=== PATIENT | female | born 1970 | race African-American/Black ===

== ENCOUNTER 2017-06-19 23:11 | Emergency (ER) | payer SELFPAY ==
[2017-06-19] MEDS ORDERED: Metoprolol Tartrate 5 MG/5 ML VIAL ONE (23:54)
--- NOTE | 2017-06-20 00:03 | RAD ---
PORTABLE UPRIGHT FRONTAL CHEST RADIOGRAPH: Date: 06-19-17 Comparison: None. History: Chest pain, throat pain. FINDINGS: Lungs are clear. Heart and mediastinal contours are grossly unremarkable. IMPRESSION: No acute findings. POS: [facility]
[2017-06-20 00:12] LABS: #Basophils 0.1 thou/uL (0.0-0.2); #Eosinphils 0.1 thou/uL (0.0-0.7); #Lymphocytes 2.9 thou/uL (1.20-3.40); #Monocytes 1.4 thou/uL (0.11-0.59); #Neutrophils 9.9 thou/uL (1.40-6.50); %Basophils 0.5 % (0.0-1.0); %Eosinophils 0.9 % (0.0-10.0); %Lymphocytes 19.9 % (21.0-51.0); %Monocytes 9.8 % (0.0-10.0); %Neutrophils 68.9 % (42.0-75.0); Hemoglobin 14.7 g/dL (12.0-16.0); Mean Corpuscular Hemoglobin 32.2 pg (27.0-31.0); Mean Corpuscular Volume 94.9 fl (81.0-99.0); Mean Platelet Volume 7.6 fL (7.4-10.4); Platelet Count 254 thou/uL (130-400); RBC Distribution Width 11.8 % (11.5-14.5); Red Blood Cell (RBC) Count 4.55 mill/uL (4.20-5.40); White Blood Cell (WBC) Count 14.4 thou/uL (4.8-10.8)
[2017-06-20 00:33] LABS: ALT (SGPT) 17 U/L (8-55); AST (SGOT) 15 U/L (5-34); Albumin 4.4 g/dL (3.5-5.0); Alkaline Phosphatase 80 U/L (40-150); Anion Gap 13 mmol/L (10-20); BUN (Urea Nitrogen) 14 mg/dL (7.0-18.7); Bilirubin, Total 0.5 mg/dL (0.2-1.2); Calc. Creatinine Clearance 0 mL/min (70-130); Calcium 9.9 mg/dL (7.8-10.44); Carbon Dioxide 24 mmol/L (22-29); Chloride 105 mmol/L (98-107); Estimated GFR-MDRD Greater than 90; Glucose 108 mg/dL (70-105); Potassium 3.6 mmol/L (3.5-5.1); Protein, Total 8.4 g/dL (6.0-8.3); Sodium 138 mmol/L (136-145)
[2017-06-20 00:37] LABS: CKMB 0.2 ng/mL (0-6.6); Troponin I Less than 0.010 ng/mL (< 0.028)
[2017-06-20] MEDS ORDERED: Acetaminophen 500 MG TAB ONE (00:38)
[2017-06-20 01:13] LABS: Bilirubin Negative (Negative); Blood, Urine Trace (Negative); Clarity CLEAR (Clear); Glucose, Urine (Dipstick) Negative (Negative); Leukocyte Negative (Negative); Nitrite Negative (Negative); Protein, Urine (Dipstick) Negative (Neg-Trace); Specific Gravity, Urine 1.016 (1.002-1.036); pH, Urine 6.5 (5.0-9.0)
[2017-06-20 01:16] LABS: Bacteria/HPF None Seen HPF (None Seen); Hyaline Casts/LPF 0-3 HYALINE CAST LPF (0-3 Hyaline); Squamous Epithelial None Seen HPF (0-3); WBC/HPF 0-3 HPF (0-3)
[2017-06-20] MEDS ORDERED: Azithromycin 500 MG VIAL ONE (03:12)
--- NOTE | 2017-06-20 08:11 | CT ---
PRELIMINARY REPORT/[facility]/EMERGENCY AFTER HOURS PROCEDURE: Addendum created by Diogenes Rhodes MD on 06/20/2017 3:00 AM Central Time ([place] & [place]) There is thickening of the adrenal glands bilaterally with maintenance of the adreniform shape but no discrete nodule or mass is. This may represent adrenal hyperplasia or adenoma formation, but is inde terminate. Initial Report created on 06/20/2017 2:55 AM Central Time ([place] & [place]) EXAM: CT Angiography Chest With Intravenous Contrast EXAM DATE/TIME: Exam ordered 06/20/2017 1:53 AM CLINICAL HISTORY: 47 years old, female; Pain; Chest pain; Type not specified; Patient HX: 46 yo f presents to ed for mu ltiple complaints. Pt reports sore throat and substernal chest pain for past x2 days. Reports chills and pain behind r ear that started today. States she did not take temperature at home. Pt reports veronique ce has been sick at home. Denies cough. Reports congestion. Reports SOB for past couple of months. De nies diarrhea. Pt is a smoker. Denies ETOH or drugs TECHNIQUE: Axial computed tomographic angiography images of the chest with intravenous contrast using pulmonary embolism protocol. All CT scans at this facility use one or more dose reduction techniques, viz.: aut omated exposure control; ma/kV adjustment per patient size (including targeted exams where dose is ma tched to indication; i.e. head); or iterative reconstruction technique. CONTRAST: 100 mL of ISO 370 administered intravenously. COMPARISON: No relevant prior studies available. FINDINGS: Pulmonary arteries: Unremarkable. No pulmonary embolism. Aorta: No acute findings. No thoracic aortic aneurysm. Lungs: There are multiple indeterminate pulmonary nodules measuring up to 5 mm in size, mostly near t he lung apices. One of these, in the periphery of the left lung apex, demonstrates central bronchiola r dilatation versus cavitation. Lungs otherwise clear allowing for expiratory phase imaging. Pleural space: Unremarkable. No significant effusion. No pneumothorax. Heart: Small pericardial effusion. No evidence of RV dysfunction. Mediastinum: Esophagus is unremarkable. Bones/joints: No acute fracture. No dislocation. Soft tissues: Unremarkable. Lymph nodes: Unremarkable. No enlarged lymph nodes. IMPRESSION: 1. Small pericardial effusion. 2. There are multiple indeterminate pulmonary nodules measuring up to 5 mm in size, mostly near the l thomas apices. One of these, in the periphery of the left lung apex, demonstrates central bronchiolar di latation versus cavitation. Findings may represent active atypical pulmonary infection, sequelae of p revious infection, or metastases. Thank you for allowing us to participate in the care of your patient. Dictated and Authenticated by: Diogenes Rhodes MD 06/20/2017 2:55 AM Central Time ([place] & [place]) FINAL REPORT EMERGENCY AFTER HOURS CT ANGIOGRAM THORAX WITH IV CONTRAST AND 3D RECONSTRUCTIONS: DATE: 06/20/17. HISTORY: Substernal chest pain for the past 2 days. Sore throat. Chest congestion and shortness of breath fo r the past couple of months. IMPRESSION: 1. There are several small subcentimeter pulmonary nodules seen within the upper lobes bilaterally. The largest pulmonary nodule in the right lung apex measures 6 mm. A few of the pulmonary nodules i n the left upper lobe demonstrate what appear to be central cavitations. The findings could be relat ed to atypical infectious process. However, followup evaluation is recommended as metastatic disease could not be entirely excluded. 2. Mild cardiomegaly with a small pericardial effusion. 3. Minimal vascular calcifications. 4. Suggestion of a mixed fat and soft tissue density incompletely imaged mass within the right breas t. This could potentially represent a fibroadenolipoma, but this would be better evaluated with mamm ographic evaluation if this has not been performed. 5. Subcentimeter too small to characterize hypodense lesions in superior pole right kidney. 6. Punctate focus of enhancement in the posterior segment of right hepatic lobe which is probably re lated to transient hepatic attenuation difference. 7. Findings are in agreement with the preliminary report by [facility]. POS: [facility]
== END 2017-06-20 04:48 | disposition home or self-care (01) ==
LOC: ERS 23:11
DX: J18.9 Pneumonia, unspecified organism (principal); E78.5 Hyperlipidemia, unspecified; I10 Essential (primary) hypertension; F17.210 Nicotine dependence, cigarettes, uncomplicated; Z79.899 Other long term (current) drug therapy; Z71.6 Tobacco abuse counseling
CPT/HCPCS: 71045; 71275; 80053; 81003; 81015; 82553; 83605; 83880; 84443; 84484; 85025; 85379; 87040; 87081; 87086; 87430; 87804; 93005; 96361; 96365; 96375; 99406; J0456; J0696

== ENCOUNTER 2019-01-30 12:38 | Emergency (ER) | payer SELFPAY ==
[2019-01-30 14:43] LABS: #Basophils 0.1 thou/uL (0.0-0.2); #Lymphocytes 1.3 thou/uL (1.20-3.40); #Monocytes 0.3 thou/uL (0.11-0.59); #Neutrophils 8.2 thou/uL (1.40-6.50); %Basophils 0.7 % (0.0-1.0); %Eosinophils 0.1 % (0.0-10.0); %Lymphocytes 13.3 % (21.0-51.0); %Monocytes 3.3 % (0.0-10.0); %Neutrophils 82.6 % (42.0-75.0); Hemoglobin 14.4 g/dL (12.0-16.0); Mean Corpuscular HGB CONC 34.1 g/dL (32.0-36.0); Mean Corpuscular Hemoglobin 32.3 pg (27.0-31.0); Mean Corpuscular Volume 94.9 fL (78.0-98.0); Mean Platelet Volume 7.8 fL (7.4-10.4); Platelet Count 356 thou/uL (130-400); RBC Distribution Width 11.3 % (11.5-14.5); Red Blood Cell (RBC) Count 4.45 mill/uL (4.20-5.40)
[2019-01-30 14:56] LABS: Bilirubin Negative (Negative); Blood, Urine Small (Negative); Glucose, Urine (Dipstick) Negative (Negative); Leukocyte Negative (Negative); Nitrite Negative (Negative); Protein, Urine (Dipstick) Negative (Neg-Trace); Urobilinogen 0.2 mg/dL (Less than 2)
[2019-01-30 14:57] LABS: ALT (SGPT) 14 U/L (8-55); AST (SGOT) 13 U/L (5-34); Albumin 4.5 g/dL (3.5-5.0); Alkaline Phosphatase 80 U/L (40-110); Anion Gap 14 mmol/L (10-20); BUN (Urea Nitrogen) 13 mg/dL (7.0-18.7); Bilirubin, Total 0.2 mg/dL (0.2-1.2); Calc. Creatinine Clearance 0 mL/min (70-130); Calcium 9.6 mg/dL (7.8-10.44); Carbon Dioxide 21 mmol/L (22-29); Chloride 106 mmol/L (98-107); Estimated GFR-MDRD Greater than 90; Globulin 3.9 g/dL (2.4-3.5); Glucose 155 mg/dL (70-105); Lipase 17 U/L (8-78); Protein, Total 8.4 g/dL (6.0-8.3); Sodium 137 mmol/L (136-145)
[2019-01-30 15:00] LABS: Clarity Clear (Clear)
[2019-01-30 15:08] LABS: Bacteria/HPF 1+ HPF (None Seen); RBC/HPF 0-3 HPF (0-3); Squamous Epithelial 0-3 HPF (0-3); WBC/HPF 0-3 HPF (0-3)
[2019-01-30] MEDS ORDERED: Ondansetron PF 4 MG/2 ML Vial ONE ×2 (15:42)
[2019-01-30] MEDS ORDERED: Morphine 4 MG/ML VIAL ONE (15:42)
[2019-01-30] MEDS ORDERED: Pantoprazole 40 MG VIAL ONE (16:36)
[2019-01-30] MEDS ORDERED: Ketorolac Tromethamine 30 MG/ML VIAL ONE ×2 (16:36→16:39)
[2019-01-30] MEDS ORDERED: Promethazine HCl 25 MG/ML VIAL ONE (16:36)
[2019-01-30] MEDS ORDERED: cefTRIAXone\\ROCEPHIN 1 GM VIAL ONE ×2 (16:36→16:39)
== END 2019-01-30 17:45 | disposition home or self-care (01) ==
LOC: ERS 12:38
DX: E86.0 Dehydration (principal); N39.0 Urinary tract infection, site not specified; E78.5 Hyperlipidemia, unspecified; E78.00 Pure hypercholesterolemia, unspecified; I10 Essential (primary) hypertension; F17.210 Nicotine dependence, cigarettes, uncomplicated
CPT/HCPCS: 36415; 80053; 81003; 81015; 83605; 83690; 85025; 87086; 96361; 96365; 96375; C9113; J0696; J1885; J2270; J2405; J2550

== ENCOUNTER 2021-10-17 22:57 | Emergency (ER) | payer SELFPAY ==
[2021-10-18] MEDS ORDERED: Ibuprofen 200 MG TAB ONE (01:41)
[2021-10-18 01:58] LABS: Bacteria/HPF None Seen HPF (None Seen); Bilirubin Negative (Negative); Blood, Urine 1+ (Negative); Clarity Clear (Clear); Glucose, Urine (Dipstick) Normal (Negative); Ketone, Urine Negative (Negative); Leukocyte Negative Leu/uL (Negative); Nitrite Negative (Negative); Protein, Urine (Dipstick) Negative (Neg-Trace); RBC/HPF 0-3 HPF (0-3); Urobilinogen Normal mg/dL (Less than 2); WBC/HPF 0-3 HPF (0-3)
[2021-10-18 02:00] LABS: Pregnancy Test - Urine (BHCG) Negative (Negative); Pregu Control Background? CLEAR/WHITE (CLR/WHITE); Pregu Control Bar Appear? YES (CONTROL BAR)
== END 2021-10-18 02:25 | disposition home or self-care (01) ==
LOC: ERS 22:57
DX: U07.1 COVID-19 (principal); R30.0 Dysuria; E78.5 Hyperlipidemia, unspecified; E78.00 Pure hypercholesterolemia, unspecified; I10 Essential (primary) hypertension; F17.210 Nicotine dependence, cigarettes, uncomplicated; Z79.899 Other long term (current) drug therapy
CPT/HCPCS: 81003; 81015; 81025; 87086; 99283; U0003; U0005

== ENCOUNTER 2022-02-01 18:22 | Emergency (ER) | payer SELFPAY ==
[2022-02-01] MEDS ORDERED: Ketorolac Tromethamine 30 MG/ML VIAL ONE (19:43)
== END 2022-02-01 20:00 | disposition home or self-care (01) ==
LOC: ERS 18:22
DX: S16.1XXA Strain of muscle, fascia and tendon at neck level, initial encounter (principal); R51.9 Headache, unspecified; E78.5 Hyperlipidemia, unspecified; E78.00 Pure hypercholesterolemia, unspecified; I10 Essential (primary) hypertension; F17.210 Nicotine dependence, cigarettes, uncomplicated; V89.0XXA Person injured in unspecified motor-vehicle accident, nontraffic, initial encounter
CPT/HCPCS: 96372; 99283; J1885

== ENCOUNTER 2023-04-06 06:08 | Emergency (ER) | payer SELFPAY ==
[2023-04-06 06:54] LABS: Bacteria/HPF None Seen HPF (None Seen); Bilirubin Negative (Negative); Blood, Urine 1+ (Negative); CAUTI Indications for Culture Pelvic or flank pain; Clarity Clear (Clear); Glucose, Urine (Dipstick) Normal (Negative); Ketone, Urine Negative (Negative); Leukocyte Negative Leu/uL (Negative); Nitrite Negative (Negative); Protein, Urine (Dipstick) 50 mg/dL (Neg-Trace); RBC/HPF 0-3 HPF (0-3); Specific Gravity, Urine 1.029 (1.002-1.036); Squamous Epithelial 0-3 HPF (0-3); Urobilinogen Normal mg/dL (Less than 2); WBC/HPF 0-3 HPF (0-3); pH, Urine 5.5 (5.0-9.0)
[2023-04-06 06:58] LABS: Pregnancy Test - Urine (BHCG) Negative (Negative); Pregu Control Background? CLEAR/WHITE (CLR/WHITE); Pregu Control Bar Appear? YES (CONTROL BAR); Specific Gravity 1.029 (1.002-1.036)
[2023-04-06 07:00] LABS: Urine Culture Reflex No No
[2023-04-06 07:15] LABS: Hematocrit 45.5 % (36.0-47.0); Hemoglobin 15.3 g/dL (12.0-16.0); Manual Diff?? YES; Mean Corpuscular HGB CONC 33.6 g/dL (32.0-36.0); Mean Corpuscular Hemoglobin 31.4 pg (27.0-31.0); Mean Corpuscular Volume 93.2 fl (78.0-98.0); Mean Platelet Volume 10.6 fL (7.4-10.4); Platelet Count 257 10x3/uL (130-400); RBC Distribution Width 12.8 % (11.5-14.5); Red Blood Cell (RBC) Count 4.88 mill/uL (4.20-5.40); White Blood Cell (WBC) Count 10.7 10x3/uL (4.8-10.8)
[2023-04-06 07:18] LABS: Delete Auto Diff?? YES
[2023-04-06] MEDS ORDERED: Famotidine/PF 20 mg/2ml Vial ONE (07:28)
[2023-04-06] MEDS ORDERED: Ondansetron PF 4 MG/2 ML Vial ONE (07:28)
[2023-04-06] MEDS ORDERED: Ketorolac Tromethamine 30 MG (1 mL) VIAL ONE (07:28)
[2023-04-06 07:41] LABS: ALT (SGPT) 17 U/L (8-55); AST (SGOT) 14 U/L (5-34); Albumin 4.7 g/dL (3.5-5.0); Alkaline Phosphatase 72 U/L (40-110); Anion Gap 16 mmol/L (10-20); BUN (Urea Nitrogen) 16 mg/dL (9.8-20.1); Bilirubin, Total 0.4 mg/dL (0.2-1.2); Calc. Creatinine Clearance 0 mL/min (70-130); Calcium 10.1 mg/dL (7.8-10.44); Carbon Dioxide 22 mmol/L (22-29); Chloride 99 mmol/L (98-107); Estimated GFR 79; Globulin 3.9 g/dL (2.4-3.5); Glucose 165 mg/dL (70-105); Lipase 42 U/L (8-78); Potassium 3.6 mmol/L (3.5-5.1); Protein, Total 8.6 g/dL (6.0-8.3); Sodium 133 mmol/L (136-145)
[2023-04-06 07:51] LABS: Troponin I Less than 0.010 ng/mL (< 0.028)
[2023-04-06 08:35] LABS: Lymphocytes 18 % (21-51); Monocytes 5 % (0-10); Neutrophil 77 % (42-75); Platelet Adequacy Comment Platelets Normal; Polychromasia SLIGHT = 2-3 cells (100X) (0-2/hpf)
== END 2023-04-06 08:50 | disposition home or self-care (01) ==
LOC: ERS 06:08
DX: K80.20 Calculus of gallbladder without cholecystitis without obstruction (principal); K76.0 Fatty (change of) liver, not elsewhere classified; N28.1 Cyst of kidney, acquired; I10 Essential (primary) hypertension; F17.210 Nicotine dependence, cigarettes, uncomplicated; Z79.899 Other long term (current) drug therapy
CPT/HCPCS: 36415; 76705; 80053; 81001; 81025; 83690; 84484; 85025; 93005; 96374; 96375; J1885; J2405; S0028

== ENCOUNTER 2023-05-30 15:20 | Emergency (ER) | payer OTHER ==
[2023-05-30 16:26] LABS: Influenza A by NAA Not Detected (NotDetected); Influenza B by NAA Not Detected (NotDetected); SARS-CoV-2 NAA Rapid Test Not Detected (NotDetected)
== END 2023-05-30 16:05 | disposition home or self-care (01) ==
LOC: ERS 15:20
DX: J06.9 Acute upper respiratory infection, unspecified (principal); I10 Essential (primary) hypertension; E78.00 Pure hypercholesterolemia, unspecified; F17.210 Nicotine dependence, cigarettes, uncomplicated; Z79.899 Other long term (current) drug therapy
CPT/HCPCS: 99283